=== PATIENT | female | born 1985 ===

== ENCOUNTER 2018-06-28 10:33 | Emergency (ER) | payer SELFPAY ==
[2018-06-28 11:17] VITALS: BMI 38.4
[2018-06-28 12:49] LABS: BLOOD UREA NITROGEN 6 mg/dl (7-17); CALCIUM 9.5 mg/dL (8.4-10.2); GFR NON-AFRICAN AMERICAN > 60
[2018-06-28 13:22] LABS: SQUAMOUS EPITHIAL 3 /hpf (0-5); URINE BACTERIA RARE (<OCC); URINE BILIRUBIN NEGATIVE (NEGATIVE); URINE BLOOD SMALL (NEGATIVE); URINE CLARITY SLIGHTY-CLOUDY (Clear); URINE COLOR YELLOW (YELLOW); URINE GLUCOSE (UA) NEG (NEGATIVE); URINE LEUKOCYTE ESTERASE NEG Leu/uL (Negative); URINE PROTEIN 30 mg/dL (NEGATIVE)
[2018-06-28 19:13] VITALS: BP 115/74; PULSE 88; TEMP 98.1
--- NOTE | 2018-06-28 21:08 | OBHP ---
Datetime: 06/28/2018 13:04 IP Adm Impression: , intrauterine ; No Active Labor IP Admit Plan: Observation/Evaluation Admit Comment, IP Provider: 33 y/o , 17.6 wks with EVARISTO of 11/30/18 presents to [facility] with vaginal bleeding. Vaginal bleeding started today 9am. Patient noticed vaginal spotting after urinating while wiping, which was bright red w/o clots. Patient also reports urgerncy, frequency, nausea, and cough. Denies fever, chills, headache, LOF, contractions, dysuria or diarrhea, or constipation. PNC: [facility] PMHx: DM x 1 year ago, was on Metformin, currently diet controlled PSHx: Cholecystectomy Kidney stone IUD removal(displaced) Allergies: NKDA Meds: PNVs F/H: Denies SOcial Hx: Denies ETOH/smoking/drugs PE: General: NAD Chest: RRR, S1S2 present, NO MRG Lungs: CTAB Abdomen: epigastric tenderness, Suprapubic tenderness Ext: No pedal edema Neuro: AAO x 3 SSE: No active vaginal bleeding, No erythema. Cervix nontender A/P: 33 y/o 17.6 wks presented to [facility] with vaginal bleeding, nausea. - No active VB on SSE exam - FHR present - Accucheck glucose 82, Blood glucose 88 - BMP, UA stat unremarkable. - Patient advised to maintain hydration. - Continue low carb diet - ED precautions provided, Patient verbalized understanding. - Patient has F/U with [facility] on 07/02/[address] Bright to establish care. Patient counsele d about care and following up with [facility]. Case discussed with Dr. Edin Quintanilla, PGY1 Addendum: Paatient was seen and evaluated with the resident and I agree with the above note. Pelvic Type - PN: Not Done Extremities - PN: Normal Abdomen - PN: Abnormal Back - PN: Normal Breast - PN: Not Done Lungs - PN: Normal Heart - PN: Normal Thyroid - PN: Not Done Neurologic - PN: Not Done HEENT - PN: Normal General - PN: Normal Comments, ACOG Physical Exam: General: NAD Chest: RRR, S1S2 present, NO MRG Lungs: CTAB Abdomen: epigastric tenderness, Suprapubic tenderness Ext: No pedal edema Neuro: AAO x 3 SSE: No active vaginal bleeding, No erythema. Cervix nontender EGA AdmitDate IP: 17.6 Vital Signs Provider: Reviewed; Within Normal Limits IP Chief Complaint: Vaginal bleeding Genitourinary Exam: Normal DTRs - PN: Not Done
== END 2018-06-28 14:30 | disposition home or self-care (01) ==
LOC: H.ER 10:33 → H.EROB 11:16 → H.ER 14:30
DX: O20.9 Hemorrhage in early pregnancy, unspecified (principal); O24.912 Unspecified diabetes mellitus in pregnancy, second trimester; Z3A.17 17 weeks gestation of pregnancy; Z87.442 Personal history of urinary calculi; Z90.49 Acquired absence of other specified parts of digestive tract